=== PATIENT | male | born 1955 | race Caucasian/White ===

== ENCOUNTER → 2017-10-02 | Outpatient (CLI) | payer BC ==
[~2017-10-02] MED LIST: ASPIRIN E.C. 8181 MG PO; BYSTOLIC10 MG PO; CIALIS5 MG PO; CLEOCIN HCL300 MG PO; LEVAQUIN 750MG750 M1 PO; MULTI VITAMINS1 TAB PO; PERCOCET 325 MG1 TA2 PO; PRILOTC PO; ULTRAM 50MG TAB50 MG PO; ZOCOR 10MG10 MG PO
[2017-10-02 17:10] LABS: BASO # 0.1 (0.0-0.2); BASO % 0.6 % (0.0-2.0); EOS # 0.1 (0.0-0.7); EOS % 1.7 % (0-4.0); GRAN # 4.6 (1.4-6.5); GRAN % 57.6 % (42.2-75.2); HEMOGLOBIN 15.6 g/dl (13.5-18.0); LYMPH # 2.3 (1.2-3.4); LYMPH % 28.7 % (20.0-51.0); MEAN CELL VOLUME 87 fl (80.0-100.0); MEAN CORPUSCULAR HEMOGLOBIN 30 pg (27.0-31.0); MEAN CORPUSCULAR HGB CONC 34 g/dl (33.0-37.0); MONO # 0.9 (0.1-0.6); MONO % 10.9 % (1.7-9.3); PLATELET COUNT 205 K/mm3 (130-400); RED BLOOD COUNT 5.28 M/mm3 (4.20-5.60); REDCELL DISTRIBUTION WIDTH-CV 13.4 % (11.5-14.5)
[2017-10-02 17:24] LABS: ALANINE AMINOTRANSFERASE 41 U/L (21-72); ALBUMIN 4.3 gm/dL (3.5-5.0); ALKALINE PHOSPHATASE 59 U/L (50-136); ANION GAP 12 mmol/L (7-16); AST,SGOT 34 U/L (15-37); BILIRUBIN,TOTAL 0.7 mg/dL (0.0-1.0); BLOOD UREA NITROGEN 15 mg/dL (9-20); CALCIUM 8.6 mg/dL (8.4-10.2); CARBON DIOXIDE 24 mmol/L (22-30); CHLORIDE 102 mmol/L (98-107); CREATININE, serum 1.01 mg/dL (0.66-1.25); GLUCOSE 89 mg/dL (74-106); LIPASE 53 U/L (23-300); POTASSIUM 4.2 mmol/L (3.4-5.0); SODIUM 138 mmol/L (137-145); TOTAL PROTEIN 7.3 gm/dL (6.4-8.2)
[2017-10-02 17:36] LABS: TROPONIN-I < 0.012 ng/mL (0.000-0.034)
== END ==
LOC: COL.LAB 16:49
PROVIDERS: Family Medicine
DX: R10.13 Epigastric pain (principal)

== ENCOUNTER → 2019-05-22 | Outpatient (CLI) | payer BC ==
[~2019-05-22] MED LIST changes: +TOPROL XL 25MG25 MG PO
== END ==
LOC: COL.VAS 07:58
DX: M79.89 Other specified soft tissue disorders (principal)

== ENCOUNTER → 2019-07-06 | Outpatient (CLI) | payer BC | LOC: COL.VAS 09:59 | DX: Z13.6 Encounter for screening for cardiovascular disorders (principal); R60.0 Localized edema ==